=== PATIENT | female | born 1990 | race Caucasian/White ===

== ENCOUNTER 2016-08-15 05:34 | Observation (INO) | payer SELFPAY ==
[2016-08-15 06:03] VITALS: BMI 22.1
--- NOTE | 2016-08-15 06:26 | EDPRACDOC ---
- General Information Information Source: Patient Mode Of Arrival: Car - History of Present Illness Onset: 2-3 days HPI: PT PRESENTS WITH HER MOM, PT C/O LEFT LOWER TOOTH ABSCESS. MOM REPORTS PT IS ON METHAMPHETAMINES, ALSO SCHIZOPHRENIA. SECURITY REPORTS THAT MOM TOLD HIM PT GOT AGGRESSIVE WITH GRANDMA AT HOME, GRABBED CLOTHING. PT HAS MODERATE PAIN. DENIES FEVER. <Kenneth Miller - Last Filed: 08/15/16 07:02> <Haseeb Sharpe - Last Filed: 08/15/16 07:39> <Shiloh Neely - Last Filed: 08/15/16 18:31> - General Information Chief Complaint: Wound Stated Complaint: PSYCH EVAL Time Seen by Provider: 08/15/16 06:12 Home Medications: Home Medications Penicillin V Potassium 500 mg PO TID #30 tablet 08/15/16 Allergies/Adverse Reactions: Allergies Allergy/AdvReac Type Severity Reaction Status Date / Time No Known Allergies Allergy Verified 03/31/16 19:25 ED Past Medical History - Patient Medical History Psychological History: Denies: Depression - Social Medical History Smoking Status: Heavy tobacco smoker (5 or more cigarettes/day or daily pipe/ cigar) <Kenneth Miller - Last Filed: 08/15/16 07:02> EDM Review of Systems - Review of Systems ROS Negative Except as Marked: Yes All systems reviewed and were negative except as marked Constitutional: No Symptoms Reported. negative: Fever Respiratory: No Symptoms Reported Cardiovascular: No Symptoms Reported Gastrointestinal: No Symptoms Reported Genitourinary: No Symptoms Reported Musculoskeletal: No Symptoms Reported <Kenneth Miller - Last Filed: 08/15/16 07:02> - Physical Exam Constitutional: Alert, Restless Oriented to: Person Last recorded Vital Signs: Last Vital Signs Temp 98.3 F 08/15/16 05:57 Pulse 89 08/15/16 05:57 Resp 18 08/15/16 05:57 BP 131/87 08/15/16 05:57 Pulse Ox 96 08/15/16 05:57 Oxygen Pulse Oxygen Saturation 96 O2 Device Room Air Oxygen Flow Rate Fraction of Inspired Oxygen ( FIO2) - HEENT Head: Normal Eye Exam: Normal - Respiratory/Cardiovascular Respiratory: Normal - CTA Cardiovascular: Normal - Musculoskeletal Back: Normal Extremities: Normal - Integumentary Skin: Normal, Warm, Dry Lymphatics: Normal - Neurologic Motor Function: Normal Mood Description: Other (CONSTANTLY MOVING. SMILING, SOMEWHAT CONFUSED.) <Kenneth Miller - Last Filed: 08/15/16 07:02> - Physical Exam Last recorded Vital Signs: Last Vital Signs Temp 98.0 F 08/15/16 07:00 Pulse 89 08/15/16 07:00 Resp 18 08/15/16 07:00 BP 126/81 08/15/16 07:00 Pulse Ox 99 08/15/16 07:00 Oxygen Pulse Oxygen Saturation 99 O2 Device Room Air Oxygen Flow Rate Fraction of Inspired Oxygen ( FIO2) <Haseeb Sharpe - Last Filed: 08/15/16 07:39> - Physical Exam Last recorded Vital Signs: Last Vital Signs Temp 98.0 F 08/15/16 07:00 Pulse 89 08/15/16 07:00 Resp 18 08/15/16 07:00 BP 126/81 08/15/16 07:00 Pulse Ox 99 08/15/16 07:00 Oxygen Pulse Oxygen Saturation 99 O2 Device Room Air Oxygen Flow Rate Fraction of Inspired Oxygen ( FIO2) <Shiloh Neely - Last Filed: 08/15/16 18:31> ED Tooth Problem Exam - HEENT Face: Swelling (LEFT MANDIBLE), Other (GENERALIZED POOR DENTITION. MANY CARIES. ) Gingiva: Pointing. negative: Draining Mouth Range of Motion: Normal Oropharynx: Normal Neck: Normal - Other Exam Teeth Image: 1 - NECROTIC; 2 - POINTING. <Kenneth Miller - Last Filed: 08/15/16 07:02> - Additional Information PT REFUSES I AND D OF DENTAL ABSCESS. JUST WANTS AMOX. <Kenneth Miller - Last Filed: 08/15/16 07:02> - Results 08/15/16 06:50 08/15/16 06:50 WBC 15.6 xk/uL (3.8-10.8) H 08/15/16 06:50 RBC 4.65 xM/uL (4.20-5.40) 08/15/16 06:50 Hgb 14.6 g/dL (12.0-16.0) 08/15/16 06:50 Hct 43.0 % (36-47) 08/15/16 06:50 MCV 92 fL (81-99) 08/15/16 06:50 MCH 31.3 pg (27-32) 08/15/16 06:50 MCHC 33.9 g/dl (33-36) 08/15/16 06:50 RDW 12.9 % (11.5-14.5) 08/15/16 06:50 Plt Count 416 xk/uL (130-400) H 08/15/16 06:50 MPV 9.5 fL (7.4-10.4) 08/15/16 06:50 Neut % (Auto) 54.5 % (45-76) 08/15/16 06:50 Lymph % (Auto) 29.9 % (17-44) 08/15/16 06:50 Williamson % (Auto) 12.4 % (3-10) H 08/15/16 06:50 Eos % (Auto) 2.3 % (0-5) 08/15/16 06:50 Baso % (Auto) 0.9 % (0-2) 08/15/16 06:50 Absolute Neuts (auto) 8.42 xk/uL (1.7-8.2) H 08/15/16 06:50 Absolute Lymphs (auto) 4.52 xk/uL (0.65-4.75) 08/15/16 06:50 Sodium 143 mEq/L (137-146) 08/15/16 06:50 Potassium 3.8 mEq/L (3.5-5.1) 08/15/16 06:50 Chloride 107 mEq/L (98-107) 08/15/16 06:50 Carbon Dioxide 23 mMOL/L (22-33) 08/15/16 06:50 Anion Gap 17 mEq/L (8-16) H 08/15/16 06:50 BUN 12 MG/DL (7-17) 08/15/16 06:50 Creatinine 0.70 MG/DL (0.52-1.04) 08/15/16 06:50 Estimated GFR (MDRD) > 60 mL/min (>=60) 08/15/16 06:50 Glucose 100 MG/DL (70-99) H 08/15/16 06:50 Calculated Osmolality 275 MOs/Kg (270-290) 08/15/16 06:50 Calcium 9.3 MG/DL (8.4-10.2) 08/15/16 06:50 Total Bilirubin 0.5 MG/DL (0.2-1.3) 08/15/16 06:50 AST 17 IU/L (14-36) 08/15/16 06:50 ALT 18 IU/L (9-52) 08/15/16 06:50 Alkaline Phosphatase 62 IU/L (38-126) 08/15/16 06:50 Total Protein 8.0 G/DL (6.3-8.2) 08/15/16 06:50 Albumin 4.1 G/DL (3.5-5.0) 08/15/16 06:50 Urine Color Yellow 08/15/16 06:50 Urine Clarity Sl hzy 08/15/16 06:50 Urine pH 5.0 (5.0-8.0) 08/15/16 06:50 Ur Specific Crescent 1.030 (1.003-1.035) 08/15/16 06:50 Urine Protein 1+ (NEG/TRACE) H 08/15/16 06:50 Urine Glucose (UA) Neg (NEGATIVE) 08/15/16 06:50 Urine Ketones Neg (NEGATIVE) 08/15/16 06:50 Urine Occult Blood Neg (NEG/TRACE) 08/15/16 06:50 Urine Nitrite Neg (NEGATIVE) 08/15/16 06:50 Urine Bilirubin Neg (NEGATIVE) 08/15/16 06:50 Urine Urobilinogen <2.0 MG/DL (0-1) 08/15/16 06:50 Ur Leukocyte Esterase 1+ (NEGATIVE) H 08/15/16 06:50 Urine RBC 2-5 (0-5) 08/15/16 06:50 Urine WBC 5-10 (0-5) H 08/15/16 06:50 Ur Epithelial Cells 4+ 08/15/16 06:50 Urine Bacteria 2+ (NEG/FEW) H 08/15/16 06:50 Urine Mucus Large (NEG/OCC) 08/15/16 06:50 Urine Test Neg (NEGATIVE) 08/15/16 06:50 Urine Opiates Screen Neg (NEGATIVE) 08/15/16 06:50 Ur Oxycodone Screen Neg (NEGATIVE) 08/15/16 06:50 Urine Methadone Screen Neg (NEGATIVE) 08/15/16 06:50 Ur Barbiturates Screen Neg (NEGATIVE) 08/15/16 06:50 Ur Tricyclics Screen Neg (NEGATIVE) 08/15/16 06:50 Ur Phencyclidine Scrn Neg (NEGATIVE) 08/15/16 06:50 Ur Amphetamines Screen *positive* (NEGATIVE) H 08/15/16 06:50 U Methamphetamines Scrn *positive* (NEGATIVE) H 08/15/16 06:50 Urine MDMA Screen *positive* (NEGATIVE) H 08/15/16 06:50 U Benzodiazepines Scrn Neg (NEGATIVE) 08/15/16 06:50 Urine Cocaine Screen Neg (NEGATIVE) 08/15/16 06:50 Ur THC Screen *positive* (NEGATIVE) H 08/15/16 06:50 Plasma/Serum Ethyl Alc % (<0.01) 08/15/16 06:50 Lab Results 08/15/16 08/15/16 08/15/16 06:50 06:50 06:50 WBC RBC Hgb Hct MCV MCH MCHC RDW Plt Count MPV Neut % (Auto) Lymph % (Auto) Williamson % (Auto) Eos % (Auto) Baso % (Auto) Absolute Neuts (auto) Absolute Lymphs (auto) Sodium Potassium Chloride Carbon Dioxide Anion Gap BUN Creatinine Estimated GFR (MDRD) Glucose Calculated Osmolality Calcium Total Bilirubin AST ALT Alkaline Phosphatase Total Protein Albumin Urine Color Yellow Urine Clarity Sl hzy Urine pH 5.0 Ur Specific Crescent 1.030 Urine Protein 1+ H Urine Glucose (UA) Neg Urine Ketones Neg Urine Occult Blood Neg Urine Nitrite Neg Urine Bilirubin Neg Urine Urobilinogen <2.0 Ur Leukocyte Esterase 1+ H Urine RBC 2-5 Urine WBC 5-10 H Ur Epithelial Cells 4+ Urine Bacteria 2+ H Urine Mucus Large Urine Test Neg Urine Opiates Screen Neg Ur Oxycodone Screen Neg Urine Methadone Screen Neg Ur Barbiturates Screen Neg Ur Tricyclics Screen Neg Ur Phencyclidine Scrn Neg Ur Amphetamines Screen *positive* H U Methamphetamines Scrn *positive* H Urine MDMA Screen *positive* H U Benzodiazepines Scrn Neg Urine Cocaine Screen Neg Ur THC Screen *positive* H Plasma/Serum Ethyl Alc 08/15/16 08/15/16 06:50 06:50 WBC 15.6 H RBC 4.65 Hgb 14.6 Hct 43.0 MCV 92 MCH 31.3 MCHC 33.9 RDW 12.9 Plt Count 416 H MPV 9.5 Neut % (Auto) 54.5 Lymph % (Auto) 29.9 Williamson % (Auto) 12.4 H Eos % (Auto) 2.3 Baso % (Auto) 0.9 Absolute Neuts (auto) 8.42 H Absolute Lymphs (auto) 4.52 Sodium 143 Potassium 3.8 Chloride 107 Carbon Dioxide 23 Anion Gap 17 H BUN 12 Creatinine 0.70 Estimated GFR (MDRD) > 60 Glucose 100 H Calculated Osmolality 275 Calcium 9.3 Total Bilirubin 0.5 AST 17 ALT 18 Alkaline Phosphatase 62 Total Protein 8.0 Albumin 4.1 Urine Color Urine Clarity Urine pH Ur Specific Crescent Urine Protein Urine Glucose (UA) Urine Ketones Urine Occult Blood Urine Nitrite Urine Bilirubin Urine Urobilinogen Ur Leukocyte Esterase Urine RBC Urine WBC Ur Epithelial Cells Urine Bacteria Urine Mucus Urine Test Urine Opiates Screen Ur Oxycodone Screen Urine Methadone Screen Ur Barbiturates Screen Ur Tricyclics Screen Ur Phencyclidine Scrn Ur Amphetamines Screen U Methamphetamines Scrn Urine MDMA Screen U Benzodiazepines Scrn Urine Cocaine Screen Ur THC Screen Plasma/Serum Ethyl Alc <Haseeb Sharpe - Last Filed: 08/15/16 07:39> - Results 08/15/16 06:50 08/15/16 06:50 WBC 15.6 xk/uL (3.8-10.8) H 08/15/16 06:50 RBC 4.65 xM/uL (4.20-5.40) 08/15/16 06:50 Hgb 14.6 g/dL (12.0-16.0) 08/15/16 06:50 Hct 43.0 % (36-47) 08/15/16 06:50 MCV 92 fL (81-99) 08/15/16 06:50 MCH 31.3 pg (27-32) 08/15/16 06:50 MCHC 33.9 g/dl (33-36) 08/15/16 06:50 RDW 12.9 % (11.5-14.5) 08/15/16 06:50 Plt Count 416 xk/uL (130-400) H 08/15/16 06:50 MPV 9.5 fL (7.4-10.4) 08/15/16 06:50 Neut % (Auto) 54.5 % (45-76) 08/15/16 06:50 Lymph % (Auto) 29.9 % (17-44) 08/15/16 06:50 Williamson % (Auto) 12.4 % (3-10) H 08/15/16 06:50 Eos % (Auto) 2.3 % (0-5) 08/15/16 06:50 Baso % (Auto) 0.9 % (0-2) 08/15/16 06:50 Absolute Neuts (auto) 8.42 xk/uL (1.7-8.2) H 08/15/16 06:50 Absolute Lymphs (auto) 4.52 xk/uL (0.65-4.75) 08/15/16 06:50 Sodium 143 mEq/L (137-146) 08/15/16 06:50 Potassium 3.8 mEq/L (3.5-5.1) 08/15/16 06:50 Chloride 107 mEq/L (98-107) 08/15/16 06:50 Carbon Dioxide 23 mMOL/L (22-33) 08/15/16 06:50 Anion Gap 17 mEq/L (8-16) H 08/15/16 06:50 BUN 12 MG/DL (7-17) 08/15/16 06:50 Creatinine 0.70 MG/DL (0.52-1.04) 08/15/16 06:50 Estimated GFR (MDRD) > 60 mL/min (>=60) 08/15/16 06:50 Glucose 100 MG/DL (70-99) H 08/15/16 06:50 Calculated Osmolality 275 MOs/Kg (270-290) 08/15/16 06:50 Calcium 9.3 MG/DL (8.4-10.2) 08/15/16 06:50 Total Bilirubin 0.5 MG/DL (0.2-1.3) 08/15/16 06:50 AST 17 IU/L (14-36) 08/15/16 06:50 ALT 18 IU/L (9-52) 08/15/16 06:50 Alkaline Phosphatase 62 IU/L (38-126) 08/15/16 06:50 Total Protein 8.0 G/DL (6.3-8.2) 08/15/16 06:50 Albumin 4.1 G/DL (3.5-5.0) 08/15/16 06:50 Urine Color Yellow 08/15/16 06:50 Urine Clarity Sl hzy 08/15/16 06:50 Urine pH 5.0 (5.0-8.0) 08/15/16 06:50 Ur Specific Crescent 1.030 (1.003-1.035) 08/15/16 06:50 Urine Protein 1+ (NEG/TRACE) H 08/15/16 06:50 Urine Glucose (UA) Neg (NEGATIVE) 08/15/16 06:50 Urine Ketones Neg (NEGATIVE) 08/15/16 06:50 Urine Occult Blood Neg (NEG/TRACE) 08/15/16 06:50 Urine Nitrite Neg (NEGATIVE) 08/15/16 06:50 Urine Bilirubin Neg (NEGATIVE) 08/15/16 06:50 Urine Urobilinogen <2.0 MG/DL (0-1) 08/15/16 06:50 Ur Leukocyte Esterase 1+ (NEGATIVE) H 08/15/16 06:50 Urine RBC 2-5 (0-5) 08/15/16 06:50 Urine WBC 5-10 (0-5) H 08/15/16 06:50 Ur Epithelial Cells 4+ 08/15/16 06:50 Urine Bacteria 2+ (NEG/FEW) H 08/15/16 06:50 Urine Mucus Large (NEG/OCC) 08/15/16 06:50 Urine Test Neg (NEGATIVE) 08/15/16 06:50 Urine Opiates Screen Neg (NEGATIVE) 08/15/16 06:50 Ur Oxycodone Screen Neg (NEGATIVE) 08/15/16 06:50 Urine Methadone Screen Neg (NEGATIVE) 08/15/16 06:50 Ur Barbiturates Screen Neg (NEGATIVE) 08/15/16 06:50 Ur Tricyclics Screen Neg (NEGATIVE) 08/15/16 06:50 Ur Phencyclidine Scrn Neg (NEGATIVE) 08/15/16 06:50 Ur Amphetamines Screen *positive* (NEGATIVE) H 08/15/16 06:50 U Methamphetamines Scrn *positive* (NEGATIVE) H 08/15/16 06:50 Urine MDMA Screen *positive* (NEGATIVE) H 08/15/16 06:50 U Benzodiazepines Scrn Neg (NEGATIVE) 08/15/16 06:50 Urine Cocaine Screen Neg (NEGATIVE) 08/15/16 06:50 Ur THC Screen *positive* (NEGATIVE) H 08/15/16 06:50 Plasma/Serum Ethyl Alc % (<0.01) 08/15/16 06:50 RPR Nonreactive (NONREACTIVE) 08/15/16 06:50 Lab Results 08/15/16 08/15/16 08/15/16 06:50 06:50 06:50 WBC RBC Hgb Hct MCV MCH MCHC RDW Plt Count MPV Neut % (Auto) Lymph % (Auto) Williamson % (Auto) Eos % (Auto) Baso % (Auto) Absolute Neuts (auto) Absolute Lymphs (auto) Sodium Potassium Chloride Carbon Dioxide Anion Gap BUN Creatinine Estimated GFR (MDRD) Glucose Calculated Osmolality Calcium Total Bilirubin AST ALT Alkaline Phosphatase Total Protein Albumin Urine Color Yellow Urine Clarity Sl hzy Urine pH 5.0 Ur Specific Crescent 1.030 Urine Protein 1+ H Urine Glucose (UA) Neg Urine Ketones Neg Urine Occult Blood Neg Urine Nitrite Neg Urine Bilirubin Neg Urine Urobilinogen <2.0 Ur Leukocyte Esterase 1+ H Urine RBC 2-5 Urine WBC 5-10 H Ur Epithelial Cells 4+ Urine Bacteria 2+ H Urine Mucus Large Urine Test Neg Urine Opiates Screen Neg Ur Oxycodone Screen Neg Urine Methadone Screen Neg Ur Barbiturates Screen Neg Ur Tricyclics Screen Neg Ur Phencyclidine Scrn Neg Ur Amphetamines Screen *positive* H U Methamphetamines Scrn *positive* H Urine MDMA Screen *positive* H U Benzodiazepines Scrn Neg Urine Cocaine Screen Neg Ur THC Screen *positive* H Plasma/Serum Ethyl Alc RPR 08/15/16 08/15/16 08/15/16 06:50 06:50 06:50 WBC 15.6 H RBC 4.65 Hgb 14.6 Hct 43.0 MCV 92 MCH 31.3 MCHC 33.9 RDW 12.9 Plt Count 416 H MPV 9.5 Neut % (Auto) 54.5 Lymph % (Auto) 29.9 Williamson % (Auto) 12.4 H Eos % (Auto) 2.3 Baso % (Auto) 0.9 Absolute Neuts (auto) 8.42 H Absolute Lymphs (auto) 4.52 Sodium 143 Potassium 3.8 Chloride 107 Carbon Dioxide 23 Anion Gap 17 H BUN 12 Creatinine 0.70 Estimated GFR (MDRD) > 60 Glucose 100 H Calculated Osmolality 275 Calcium 9.3 Total Bilirubin 0.5 AST 17 ALT 18 Alkaline Phosphatase 62 Total Protein 8.0 Albumin 4.1 Urine Color Urine Clarity Urine pH Ur Specific Crescent Urine Protein Urine Glucose (UA) Urine Ketones Urine Occult Blood Urine Nitrite Urine Bilirubin Urine Urobilinogen Ur Leukocyte Esterase Urine RBC Urine WBC Ur Epithelial Cells Urine Bacteria Urine Mucus Urine Test Urine Opiates Screen Ur Oxycodone Screen Urine Methadone Screen Ur Barbiturates Screen Ur Tricyclics Screen Ur Phencyclidine Scrn Ur Amphetamines Screen U Methamphetamines Scrn Urine MDMA Screen U Benzodiazepines Scrn Urine Cocaine Screen Ur THC Screen Plasma/Serum Ethyl Alc RPR Nonreactive - Additional Information No changes in clinical status or new information from previous documentation. Vital Signs: Temp:98.0 F HR: 89 BP: 126/81 RR: 18 Pox: 99%. Continue with current plan. PT IS STABLE FOR TRANSFER. <Shiloh Neely - Last Filed: 08/15/16 18:31> - Departure Yes I personally saw and evaluated the patient. <Kenneth Miller - Last Filed: 08/15/16 07:02> - Departure Education/Counseling Given To: Patient Education/Counseling Given Regarding: Diagnosis, Treatment <Haseeb Sharpe - Last Filed: 08/15/16 07:39> <Shiloh Neely - Last Filed: 08/15/16 18:31> - Departure Condition: Stable Final Diagnosis: Dental abscess, Acute psychosis, Polysubstance abuse
[2016-08-15] MEDS ORDERED: PENICILLIN 250 MG TAB PO ONE (06:28)
[2016-08-15] MEDS ORDERED: RISPERIDONE 1 MG TAB PO ONE (06:31)
[2016-08-15] MEDS ORDERED: ONDANSETRON HCL 4 MG ODT TAB PO PRN (06:51)
[2016-08-15] MEDS ORDERED: IBUPROFEN 400 MG TAB PO PRN (06:51)
[2016-08-15] MEDS ORDERED: ACETAMINOPHEN 325 MG/TAB TABLET PO PRN (06:51)
[2016-08-15 07:04] LABS: ALL NEG? NO
[2016-08-15 07:16] LABS: AUTOMATED BASOPHIL 0.9 % (0-2); AUTOMATED EOSINOPHIL 2.3 % (0-5); AUTOMATED LYMPH 29.9 % (17-44); AUTOMATED MONOCYTE 12.4 % (3-10); AUTOMATED NEUTROPHIL 54.5 % (45-76); MPV 9.5 fL (7.4-10.4)
[2016-08-15 07:23] LABS: LEUKOCYTES/URINE 1+ (NEGATIVE); NITRITE/URINE NEG (NEGATIVE); URINE OCCULT BLOOD NEG (NEG/TRACE)
[2016-08-15 07:25] LABS: BLOOD UREA NITROGEN 12 MG/DL (7-17); CALCIUM 9.3 MG/DL (8.4-10.2); CALCULATED OSMOLALITY 275 MOs/Kg (270-290); CHLORIDE 107 mEq/L (98-107); ETOH-MGDL < 10 mg/dL; GLUCOSE 100 MG/DL (70-99); METHAMPHETAMINES *POSITIVE* (NEGATIVE); SODIUM LEVEL 143 mEq/L (137-146)
[2016-08-15 07:26] LABS: MDMA* *POSITIVE* (NEGATIVE); OXYCODONE NEG (NEGATIVE)
[2016-08-15] MEDS ORDERED: NICOTINE 21 MG PATCH TOP SCH (09:00)
[2016-08-15] MEDS ORDERED: PENICILLIN 250 MG TAB PO SCH (14:00)
[2016-08-15 20:06] VITALS: BP 138/90; PULSE 96; TEMP 98.1
== END 2016-08-15 18:35 ==
LOC: ED 05:34 → EDINP 07:41 → TUOBSINP 11:18
PROVIDERS: ADMIT Emergency Medicine; ATTEND Emergency Medicine
DX: K04.7 Periapical abscess without sinus (principal); F23 Brief psychotic disorder; F19.10 Other psychoactive substance abuse, uncomplicated; F17.210 Nicotine dependence, cigarettes, uncomplicated; Z79.2 Long term (current) use of antibiotics
CPT/HCPCS: 36415; 80053; 80307; 80320; 81001; 81025; 85025; 86592; 87086; 99283; G0378; J3490

== ENCOUNTER 2016-09-12 20:20 | Emergency (ER) | payer SELFPAY ==
[2016-09-12 20:24] VITALS: TEMP 98.7
[2016-09-12 21:40] VITALS: BMI 24.7
[2016-09-12] MEDS ORDERED: OXYCODONE HCL 5 MG TABLET PO ONE (22:32)
[2016-09-12] MEDS ORDERED: SUMATRIPTAN SUCCINATE 6 MG/0.5 ML VIAL SQ ONE (22:32)
[2016-09-12] MEDS ORDERED: DIPHENHYDRAMINE 25 MG CAP PO ONE (22:32)
[2016-09-12] MEDS ORDERED: KETOROLAC TROMETHAMINE 10 MG TAB PO ONE (22:32)
--- NOTE | 2016-09-12 22:35 | EDPRACDOC ---
- General Information Chief Complaint: Headache Stated Complaint: MIGRAINE/ABD PAIN Time Seen by Provider: 09/12/16 22:25 Information Source: Family Home Medications: Home Medications Buspirone Unk 0 mg PO .SEE COMMENTS 09/12/16 Ciprofloxacin HCl [Cipro] 500 mg PO BID #20 tab 09/12/16 Ketorolac Tromethamine [Toradol] 10 mg PO Q6H PRN #20 tab 09/12/16 Permethrin [Elimite] 60 gm TP . #1 cream..g. 09/12/16 Risperdal Unk 0 mg PO .SEE COMMENTS 09/12/16 Sumatriptan [Imitrex] 20 mg NS . PRN #1 spray 09/12/16 Allergies/Adverse Reactions: Allergies Allergy/AdvReac Type Severity Reaction Status Date / Time No Known Allergies Allergy Verified 09/12/16 21:40 - History of Present Illness HPI: PATIENT HAS A HX OF SCHIZOPHRENIA AND METHAMPHETAMINE ABUSE. SHE COMPLAINS OF RIGHT PARIETAL HEADACHE WITH PAIN BEHIND RIGHT EYE SIMILAR TO PRIOR MIGRAINES. SHE DENIES FEVER. NO N/V. SHE NOTES SHE ITCHES ALL OVER AND SHOWS SIGNS OF PICKING AT SKIN. SHE NOTES SHE HAS MILD DYSURIA. Location: Reports: Parietal Pain Quality: Reports: Aching Associated Signs and Symptoms: Reports: Chronic Headaches ED Past Medical History - History Reviewed Yes Nurses notes reviewed and agree except as marked Travel Outside of [place] in the Last 3 Months?: No - Patient Medical History Psychological History: Denies: Depression - Social Medical History Smoking Status: Never smoker ETOH: Social Substance Abuse: Illicit Drugs (METHAMPHETAMINE) EDM Review of Systems - Review of Systems ROS Negative Except as Marked: Yes All systems reviewed and were negative except as marked Constitutional: No Symptoms Reported. negative: Fever, Chills, Weakness, Fatigue, Loss of Appetite Eyes: No Symptoms Reported. negative: Redness, Blurred Vision, Double Vision, Discharge, Pain, Light Sensitive, Photophobia Ears: No Symptoms Reported. negative: Pain, Hearing Loss, Drainage, Ear Pulling Throat: No Symptoms Reported. negative: Pain, Swelling Nose: No Symptoms Reported. negative: Congestion, Bleeding, Discharge, Injection, Swelling, Deformity, Ecchymosis, Tender, Abrasion, Laceration Mouth: No Symptoms Reported. negative: Pain, Drooling Respiratory: No Symptoms Reported. negative: Cough, Brassy Cough, Barky Cough, Shortness of Breath, Wheezing, Hemoptysis Cardiovascular: No Symptoms Reported. negative: Chest Pain, Palpitations, Syncope, Edema, Orthopnea, PND, Skin Mottling, Cyanosis Gastrointestinal: No Symptoms Reported. negative: Pain, Constipation, Nausea, Vomiting, Diarrhea, Melena, Formula Intolerance Genitourinary: Dysuria. negative: Bleeding, Discharge, Frequency, Hematuria, , Testicular Pain Neurological: Headache. negative: Dizziness, Gait Difficulty, Numbness, Seizure , Speech Difficulty, Weakness Musculoskeletal: No Symptoms Reported. negative: Neck, Chestwall, Ribs, Back, Shoulder, Arm, Elbow, Forearm, Wrist, Hand, Pelvis, Hip, Femur, Knee, Leg, Ankle , Foot Integumentary: Rash. negative: Bruising, Itching, Wound Allergic/Immunologic: No Symptoms Reported. negative: Hives, Itching Hematologic: No Symptoms Reported. negative: Lymphadenopathy, Easy Bruising, Easy Bleeding Endocrine: No Symptoms Reported. negative: Weight Gain, Weight Loss Psychiatric: No Symptoms Reported. negative: Anxiety, Depression, Hallucinations, Insomnia, Suicidal - Physical Exam Constitutional: Alert (Awake), No apparent distress Oriented to: Time, Person, Place Last recorded Vital Signs: Last Vital Signs Temp 98.7 F 09/12/16 20:23 Pulse 92 09/12/16 22:25 Resp 18 09/12/16 22:25 BP 111/57 L 09/12/16 22:25 Pulse Ox 95 09/12/16 22:25 Oxygen Pulse Oxygen Saturation 95 O2 Device Room Air Oxygen Flow Rate Fraction of Inspired Oxygen ( FIO2) - HEENT Head: Normal ( normocephalic) Eye Exam: Normal (PERRL, EOMI, Sclera white) Oropharynx: Normal (Pharynx:Moist without exudate,Gums-no swelling) Tympanic Membrane: Normal ENT EAC: Normal TMJ: Normal Nose: No Symptoms Reported (septum midline) Neck: Normal (FROM, trachea at midline) - Respiratory/Cardiovascular Respiratory: Normal - CTA (BBS clear to auscultation without adventitious sounds ) Cardiovascular: Normal (RRR without murmur, gallop or rub) - GI Auscultation: Normal (NABS) Palpation: Normal (Soft,No rebound or guarding, non distended) Tenderness: Non tender Arciniega's Sign: Negative - Bladder: Normal - Musculoskeletal Back: Normal (Non-Tender) Extremities: Normal (Normal tone, Pulses 2+ No cyanosis or edema, FROM) - Integumentary Skin: Warm, Dry, Other (AREAS OF EXCORIATION WHERE PATIENT HAS SCRATCHED HERSELF ) Lymphatics: Normal (no adenopathy) - Neurologic Memory Impaired: Normal Motor Function: Normal (Normal tone, Pulses 2+ No cyanosis or edema, FROM) Cranial Nerve: Normal (CN II-X11 intact sensation, strength 5/5) Cerebellar: Normal Mood Description: Normal Perception: Normal Decision Time to Discharge: 22:55 - Departure Yes I personally saw and evaluated the patient. Disposition: Home Condition: Good Final Diagnosis: Headache, Rash UTI (urinary tract infection) Qualifiers: Urinary tract infection type: acute cystitis Hematuria presence: without hematuria Qualified Code(s): N30.00 - Acute cystitis without hematuria Instructions: Urinary Tract Infection in Women (ED), Dysuria, Acute Headache ( ED) Education/Counseling Given To: Patient Education/Counseling Given Regarding: Diagnosis, Treatment, Prognosis, Follow Up Referrals: None,No Provider [Primary Care Provider] - One Week Jace Corley MD [Staff Physician] - One Week Prescriptions: New Ciprofloxacin HCl [Cipro] 500 mg PO BID #20 tab Ketorolac Tromethamine [Toradol] 10 mg PO Q6H PRN #20 tab PRN Reason: Pain Permethrin [Elimite] 60 gm TP . #1 cream..g. Sumatriptan [Imitrex] 20 mg NS . PRN #1 spray PRN Reason: Headache No Action Risperdal Unk 0 mg PO .SEE COMMENTS Buspirone Unk 0 mg PO .SEE COMMENTS
[2016-09-12 22:48] LABS: LEUKOCYTES/URINE TRACE (NEGATIVE); NITRITE/URINE NEG (NEGATIVE); URINE OCCULT BLOOD NEG (NEG/TRACE)
[2016-09-12 22:50] LABS: AMORPHOUS 3+; RBC/URINE 0-2 (0-5)
[2016-09-12] MEDS ORDERED: AZITHROMYCIN 250 MG TAB PO ONE (22:54)
[2016-09-12] MEDS ORDERED: CEFTRIAXONE 250 MG VIAL IM ONE (22:54)
[2016-09-12] MEDS ORDERED: LIDOCAINE 1% 2 ML (METHYLPARABEN FREE) ONE (23:08)
[2016-09-13 00:08] VITALS: BP 116/60; PULSE 75
== END 2016-09-13 00:07 | disposition home or self-care (01) ==
LOC: ED 20:20
DX: N30.00 Acute cystitis without hematuria (principal); R21 Rash and other nonspecific skin eruption; R51 Headache
CPT/HCPCS: 81001; 81025; 96372; 99284; J0696; J2001; J3030; J3490